=== PATIENT | male | born 1995 | race African-American/Black ===

== ENCOUNTER 2018-08-04 21:02 | Emergency (ER) | payer SELFPAY ==
[~2018-08-04] VITALS: Ht 182.9 cm; Wt 78.0 kg
[2018-08-04 21:15] VITALS: BP 154/84
[2018-08-04] MEDS ORDERED: IBUPROFEN600 MG ORAL (21:47)
[2018-08-04 21:57] VITALS: BP 150/81
[2018-08-04 21:58] VITALS: BP 150/81
--- NOTE | 2018-08-04 22:16 | Emergency Room Report ---
History of Present Illness General Chief Complaint: Headache Source: Patient Present Illness HPI 22-year-old male presents ED for evaluation. Complaining of headache 4 days. Patient states that headache started after listening to loud music. States that pain is throbbing, frontal, 7 out of 10, nonradiating. Denies neck stiffness. Denies fevers or chills. Notes some light sensitivity. Denies nausea or vomiting. States that symptoms retrigger whenever he listened to loud music or watch the TV with loud volume on. Denies any sore throat or cough. Denies any earache. No other aggravating relieving factors. Denies any other associated symptoms Allergies: Coded Allergies: No Known Allergies (Unverified , 08/04/18) Patient History Past Medical History: none Past Surgical History: none Pertinent Family History: none Social History: Denies: smoking, alcohol use, drug use Immunizations: UTD Reviewed Nursing Documentation: PMH: Agreed; PSxH: Agreed Nursing Documentation-PMH Past Medical History: No Stated History Review of Systems All Other Systems: negative except mentioned in HPI Physical Exam Vital Signs Date Time Temp Pulse Resp B/P (MAP) Pulse Ox O2 Delivery O2 Flow Rate FiO2 08/04/18 21:04 98.2 72 18 154/84 98 Room Air Sp02 EP Interpretation: reviewed, normal General Appearance: no apparent distress, alert, GCS 15, non-toxic Head: normocephalic Eyes: bilateral eye normal inspection, bilateral eye PERRL, bilateral eye EOMI , bilateral eye visual acuity ENT: hearing grossly normal, normal pharynx, no angioedema, normal voice Neck: full range of motion, supple, no meningismus, supple/symm/no masses Respiratory: normal inspection Cardiovascular #1: normal inspection Gastrointestinal: normal inspection Rectal: deferred Genitourinary: no CVA tenderness Musculoskeletal: normal inspection Neurologic: alert, oriented x3, responsive, highway landscape architect III-XII nml as tested, motor strength/tone normal, SLR negative, sensory intact, speech normal Psychiatric: normal inspection Skin: normal inspection Lymphatic: normal inspection Medical Decision Making Diagnostic Impression: Primary Impression: Headache Qualified Codes: R51 - Headache ER Course Hospital Course 22-year-old male presents to ED complaining of headaches x 3 days with photophobia Differential diagnoses include: tension headache, migraine, dehydration, intracranial bleed Clinical course Patient placed on stretcher. After initial history, physical exam reveals male in no acute distress. Cranial nerves II through XII grossly intact. Pupils reactive bilaterally. No nuchal rigidity. Head and neck exam unremarkable. Remainder of exam unremarkable Patient has no headache at this time. Based on history, headaches are likely triggered by loud music. Blood bedside states that music is indeed very loud. Watches TV with volume all the way up. Also is staring at his phone all day long. Patient also notes that he used to wear glasses but stopped wearing them because they broke. Patient states he does strain his eyes when watching TV or reading. I recommended patient follow-up with ophthalmology for eye exam with possible corrective lenses. Patient has no nuchal rigidity, no focal neurological deficits and no headache at this time. I do not believe imaging is required at this time. Patient is safe for discharge close outpatient follow-up i. I feel this is a highly complex case requiring extensive working including EKG/Rhythm strip, Xray/CT/US, Blood/urine lab work, repeat exams while in ED, and administration of strong opiates/narcotics for pain control, admission to hospital or close patient follow up. Diagnosis - headache stable and discharged to home with Rx Motrin. f/up with PMD/optho. return to ED if symptoms recur/worsen. Last Vital Signs Date Time Temp Pulse Resp B/P (MAP) Pulse Ox O2 Delivery O2 Flow Rate FiO2 08/04/18 21:58 98.2 64 18 150/81 99 Room Air Status: improved Disposition: HOME, SELF-CARE Condition: Stable Scripts Ibuprofen* (MOTRIN*) 600 Mg Tablet 600 MG ORAL Q8H PRN for For Pain, #30 TAB 0 Refills Prov: Davdi Jeronimo MD 08/04/18 Referrals: NOT CHOSEN [facility]/MD,REFERRING (PCP) Patient Instructions: Migraine Headache Additional Instructions: stop listening to loud music. get your eyes checked. David Jeronimo MD Aug 04, 2018 22:16
== END 2018-08-04 21:59 | disposition home or self-care (01) ==
LOC: EMR 21:21
DX: R51 Headache (principal); H53.149 Visual discomfort, unspecified
CPT/HCPCS: 99282